=== PATIENT | male | born 1945 | race Caucasian/White ===

== ENCOUNTER 2023-06-29 22:29 | Emergency (ER) | payer MEDICARE, OTHER, SELFPAY ==
[2023-06-29 22:57] VITALS: BP 139/77; PULSE 58; RESP 18; TEMP 36.4; O2SAT 95; BMI 33.9
--- NOTE | 2023-06-29 23:48 | CRLHL7_ITS ---
For Patients: As a result of the Cures Act, medical imaging exams and procedure reports are released immediately into your electronic medical record. You may view this report before your referring provider. If you have questions, please contact your health care provider. INDICATION: Fell skiing, impact right side. COMPARISON: None. TECHNIQUE: Right ribs 2 views. FINDINGS: A BB marker was placed over the right lower chest wall. No displaced rib fracture is identified in this region. The upper ribs are excluded from the field of view. There is a small metallic foreign body projected over the proximal right humeral shaft. IMPRESSION: No displaced rib fracture identified. Dictated by Kala Isabel MD @ 06/30/2023 1:36:39 AM (Electronically Signed)
--- NOTE | 2023-06-29 23:48 | CRLHL7_ITS ---
For Patients: As a result of the Cures Act, medical imaging exams and procedure reports are released immediately into your electronic medical record. You may view this report before your referring provider. If you have questions, please contact your health care provider. INDICATION: Fell skiing, impact right side. TECHNIQUE: Right shoulder 3 views. COMPARISON: None. FINDINGS: No acute fracture or dislocation. Mild degenerative changes of the glenohumeral and acromioclavicular joints. There is a small metallic foreign body projected over the proximal humeral shaft. The visualized right lung is clear. Soft tissues are unremarkable. IMPRESSION: 1. Mild degenerative changes of the shoulder. No fracture identified. 2. Small metallic foreign body projected over the proximal humeral shaft could be postoperative in nature however clinical correlation is recommended. Dictated by Kala Isabel MD @ 06/30/2023 1:30:30 AM (Electronically Signed)
--- NOTE | 2023-06-29 23:48 | CRLHL7_ITS ---
For Patients: As a result of the Cures Act, medical imaging exams and procedure reports are released immediately into your electronic medical record. You may view this report before your referring provider. If you have questions, please contact your health care provider. INDICATION: Fell skiing, impact right side. TECHNIQUE: Pelvis and right hip 3 views. COMPARISON: None. FINDINGS: No acute fracture or dislocation. The hip joint spaces are preserved. Lower lumbar spine hardware. The sacroiliac joints are normal in appearance. Mild degenerative changes of the pubic symphysis. Pelvic phleboliths. Soft tissues are unremarkable. IMPRESSION: No acute findings. Dictated by Kala Isabel MD @ 06/30/2023 1:32:50 AM (Electronically Signed)
--- NOTE | 2023-06-29 23:49 | ED.GENADULT ---
HPI - General Adult General Chief complaint: Fall/Minor Trauma Stated complaint: injured right hip Time Seen by Provider: 06/29/23 23:42 History of Present Illness HPI narrative: This 78-year-old male comes in with an injury that occurred prior to arrival. He was downhill skiing and his skis got stuck causing him to lunge forward down hill. He landed on his right side and complains of pain in his right hip, right ribs, and right shoulder. He did not hit his head or have loss of consciousness. He states that he did get up and ski down the hill but now has worsening pain. He has trouble bearing weight on his right leg. Related Data Home Medications Medication Instructions Recorded Confirmed allopurinol .ROUTE 06/29/23 apixaban 5 mg tablet (Eliquis) 5 mg PO BID 06/29/23 06/29/23 atenolol .ROUTE 06/29/23 atorvastatin 10 mg tablet 10 mg PO DAILY 06/29/23 06/29/23 chlorthalidone .ROUTE 06/29/23 losartan .ROUTE 06/29/23 magnesium glycinate PO 06/29/23 pantoprazole PO 06/29/23 Allergies Allergy/AdvReac Type Severity Reaction Status Date / Time No Known Drug Allergies Allergy Verified 06/29/23 22:47 Review of Systems Status of ROS: Reports: 10 or more systems reviewed and unremarkable except as noted in History and below Narrative: Constitutional: No fevers, no weight gain or loss. Eyes: No discharge. No vision changes. HENT: No congestion, no sore throat, no ear pain. Cardiovascular: No palpitations. Respiratory: No shortness of breath, no wheezes, no cough. Gastrointestinal: No abdominal pain, no vomiting, no diarrhea. Genitourinary: No dysuria, no hematuria. Musculoskeletal: Pain in the right hip, right ribs, and right shoulder. Skin: No rashes, no pruritis. Neurological: No dizziness, weakness, sensory change, speech change. Endo/Heme/Allergies: No bruising or bleeding. No polydipsia. Pysch: no suicidality, no anxiety, no insomnia. All other systems reviewed and are negative. Exam Narrative: Exam Narrative: Constitutional: Well-developed, well-nourished, no acute distress. HEENT: Normocephalic, atraumatic. Neck: Normal range of motion. Nontender. Supple. Heart: Regular. No murmurs. Normal rate. Intact distal pulses. Lungs: Clear to auscultation. No wheezes, rhonchi, or rales. Chest: Mild discomfort in the right lateral ribs. Abdomen: Normal bowel sounds. Nontender. No rebound tenderness. Genitalia: Deferred. Back: No midline tenderness. Normal range of motion. 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 He is unable to raise his right leg off the bed because of pain in his right hip. Right shoulder has diffuse pain with no sign of deformity or decreased range of motion. Skin: Intact. No rash. Warm. No erythema or pallor. Neurologic: No altered sensation. No weakness. Alert and oriented. Psychiatric: No suicidality. No anxiety or depression. No insomnia. Nursing notes and vitals signs are reviewed. Const: Vital Signs, click to edit/add: Vital Signs - 24 hr 06/29/23 22:57 Temperature 97.6 F Pulse Rate [Pulse Oximeter] 58 L Respiratory Rate 18 Blood Pressure [Ri ght Upper Arm] 139/77 Pulse Oximetry 95 Oxygen Delivery Me thod Room Air Course Vital Signs Vital signs: Initial Vital Signs Temperature 97.6 F 06/29/23 22:57 Temperature Source Temporal Artery Scan 06/29/23 22:57 Pulse Rate 58 L 06/29/23 22:57 Pulse Rhythm Regular 06/29/23 22:57 Respiratory Rate 18 06/29/23 22:57 Blood Pressure 139/77 06/29/23 22:57 Blood Pressure Mean 97 06/29/23 22:57 Blood Pressure Position Sitting 06/29/23 22:57 Pulse Oximetry 95 06/29/23 22:57 Oxygen Delivery Method Room Air 06/29/23 22:57 Vital Signs Temperature 97.6 F 06/29/23 22:57 Pulse Rate 58 L 06/29/23 22:57 Respiratory Rate 18 06/29/23 22:57 Blood Pressure 139/77 06/29/23 22:57 Pulse Oximetry 95 06/29/23 22:57 Oxygen Delivery Method Room Air 06/29/23 22:57 Temperature 97.6 F 06/29/23 22:57 Pulse Rate 58 L 06/29/23 22:57 Respiratory Rate 18 06/29/23 22:57 Blood Pressure 139/77 06/29/23 22:57 Pulse Oximetry 95 06/29/23 22:57 Oxygen Delivery Method Room Air 06/29/23 22:57 Medical Decision Making MDM Narrative Medical decision making narrative: This patient comes in with injury primarily to his right hip but also complains of some pain in his right ribs and right shoulder. X-ray imaging of these 3 areas by my review show no sign of osseous injury. The patient has pain when engaging is hip flexor mechanism of the right leg. His pain is more focused at the iliac crest and is typical of a hip pointer. He is okay to be discharged home. He was fitted for crutches and received prescription from [employer] [facility] for [place]. Discharge Plan Discharge Clinical Impression: Contusion of hip, right Patient Disposition: Home, Self-Care Condition: Stable Additional Instructions: Use crutches as needed. Take medications also as needed and directed. Increase activity as tolerated. Follow up with MD or return if worsening. Prescriptions: No Action Eliquis 5 mg tablet 5 mg PO BID pantoprazole [Protonix] PO allopurinol .ROUTE magnesium glycinate PO atenolol .ROUTE atorvastatin 10 mg tablet 10 mg PO DAILY chlorthalidone .ROUTE losartan .ROUTE Follow Up/Referrals: Provider,Not a Local [Primary Care Provider] - Stand Alone Forms: [employer] Info Instructions
== END 2023-06-30 01:25 | disposition home or self-care (01) ==
PROVIDERS: Emergency Provider Emergency Medicine Emergency Medical Services
DX: S70.01XA Contusion of right hip, initial encounter (principal); V00.321A Fall from snow-skis, initial encounter
CPT/HCPCS: 71100; 73030; 73502; 99283; 99284

== ENCOUNTER 2024-08-24 08:54 | Emergency (ER) | payer MEDICARE, OTHER, SELFPAY ==
[2024-08-24 09:36] VITALS: BP 145/78; PULSE 86; RESP 18; TEMP 36.8; O2SAT 96; BMI 31.6
[2024-08-24 09:47] LABS: Appearance Urine Clear (Clear); Bilirubin Urine Negative (Negative); Blood Urine Negative (Negative); Color Urine Yellow (Yellow); Glucose Urine Negative (Negative); Ketones Urine Negative (Negative); Leukocyte Esterase Urine Negative (Negative); Nitrite Urine Negative (Negative); Protein Urine 2+ (Negative); Urobilinogen Urine 0.2 (0.2-1.0)
[2024-08-24 09:56] LABS: Bacteria Urine Few; RBC Urine 0-2 (0-2); Squamous Epithelial Cell Urine Few (None-Few); WBC Urine 0-2 (0-5)
--- NOTE | 2024-08-24 10:26 | ED.GENADULT ---
HPI - General Adult General Chief complaint: Urogenital Problems, Male Stated complaint: Suspected urinary tract infection Time Seen by Provider: 08/24/24 09:47 History of Present Illness HPI narrative: Patient reports about one week of bladder pain and frequency. Denies any sensation of not fully emptying bladder. No previous issues with bladder function. 79-year-old man presenting to the emergency department with some suprapubic area discomfort and some urgency. Actually is not really experiencing frequency. By the time I am seeing him he has resulted a relatively normal urine though with 2+ protein. 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 No constipation or diarrhea. No fever. No hematuria. Some discomfort over the last few weeks. Has had a colonoscopy last few years ago and denies a history diverticulosis. 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 Data Home Medications ?Medication ?Instructions ?Recorded ?Confirmed allopurinol .ROUTE 06/29/23 apixaban 5 mg tablet (Eliquis) 5 mg PO BID 06/29/23 08/24/24 atenolol .ROUTE 06/29/23 atorvastatin 10 mg tablet 10 mg PO DAILY 06/29/23 06/29/23 chlorthalidone .ROUTE 06/29/23 losartan .ROUTE 06/29/23 magnesium glycinate PO 06/29/23 pantoprazole PO 06/29/23 alfuzosin 10 mg tablet,extended mg PO 08/24/24 release 24 hr allopurinol 100 mg tablet mg DAILY 08/24/24 atenolol 50 mg tablet mg DAILY 08/24/24 atorvastatin 40 mg tablet mg DAILY 08/24/24 doxepin 10 mg/mL oral concentrate mg 08/24/24 losartan 100 mg tablet mg DAILY 08/24/24 pantoprazole 20 mg tablet,delayed mg PO DAILY 08/24/24 release semaglutide 0.25 mg or 0.5 mg (2 mg subcut 08/24/24 mg/3 mL) subcutaneous pen injector (Ozempic) Allergies Allergy/AdvReac Type Severity Reaction Status Date / Time No Known Drug Allergies Allergy Verified 06/29/23 22:47 Review of Systems Status of ROS: Reports: 6 or more systems reviewed and unremarkable except as noted in History and below PFSH PFSH Social History Non-prescribed substance use: denies use Exam Narrative: Exam Narrative: Pleasant. NAD. Skin is warm and dry. There is no lower extremity edema. Well-perfused extremities. Breathing easily. Lungs are clear. Heart in regular rate and rhythm without murmur rub or gallop. Abdomen is soft. He does flinch with deep palpation kind of guarded little bit in the right lower abdomen and the suprapubic area less so to the left. No flank pain. IDDIER with prostate check is without tenderness. Const: Vital Signs, click to edit/add: Vital Signs - 24 hr 08/24/24 09:36 Temperature 98.3 F Pulse Rate [Pulse Oximeter] 86 Respiratory Rate 18 Blood Pressure [Ri ght Upper Arm] 145/78 H Pulse Oximetry 96 Oxygen Delivery Me thod Room Air Documenting provider has reviewed patient's vital signs: yes Course Vital Signs Vital signs: Initial Vital Signs Temperature 98.3 F 08/24/24 09:36 Temperature Source Temporal Artery Scan 08/24/24 09:36 Pulse Rate 86 08/24/24 09:36 Respiratory Rate 18 08/24/24 09:36 Blood Pressure 145/78 H 08/24/24 09:36 Blood Pressure Mean 100 08/24/24 09:36 Pulse Oximetry 96 08/24/24 09:36 Oxygen Delivery Method Room Air 08/24/24 09:36 Vital Signs Temperature 98.3 F 08/24/24 09:36 Pulse Rate 86 08/24/24 09:36 Respiratory Rate 18 08/24/24 09:36 Blood Pressure 145/78 H 08/24/24 09:36 Pulse Oximetry 96 08/24/24 09:36 Oxygen Delivery Method Room Air 08/24/24 09:36 Temperature 98.3 F 08/24/24 09:36 Pulse Rate 73 08/24/24 13:05 Respiratory Rate 16 08/24/24 13:05 Blood Pressure 139/86 08/24/24 13:05 Pulse Oximetry 98 08/24/24 13:05 Oxygen Delivery Method Room Air 08/24/24 13:05 Medications Administered Medications: Discontinued Medications Generic Name Dose Route Start Last Admin Trade Name Freq PRN Reason Stop Dose Admin Sodium Chloride 1,000 mls @ 1,000 mls/hr 08/24/24 12:15 08/24/24 12:24 0.9 % Sodium Chloride 1000 Ml IV 08/24/24 13:14 Not Given .Q1H ONE Medical Decision Making MDM Narrative Medical decision making narrative: Differential does include urinary tract infection, prostatitis, diverticulitis, urinary retention although was bladder scanned here as well for about [address] IV. Check renal function perhaps white count will prompt CT imaging looking for diverticulitis in particular. Will need to verify creatinine 1st White count returned the nearly 13,000. Given location of pain I would presume diverticulitis or possible even appendicitis. Has been pending creatinine to receive potentially contrasted imaging. I did discuss this with Dr. Mtz and regardless of creatinine he would prefer no contrast possible. Will proceed with noncontrasted scan. Noncontrast CT scan of abdomen pelvis independently reviewed by me with inflammatory changes in the mid to right lower abdomen/pelvis. I would think this is consistent with diverticulitis. There is however a calcification in the area to the would suggest appendicolith but Dr. Mtz confirms status post appendectomy. Labs with mildly elevated white count at 12.9. Creatinine apparently is in good range at 1.5. Urinalysis with 2 +protein. Otherwise no evidence of infection. Radiology over-read below Indication: RIGHT LOWER ABD PAIN. ?DIVERTICULITIS Technique: CT abdomen/pelvis without IV contrast Comparison: None Findings: Lower thorax: Mild bibasilar atelectasis. Calcified granulomas bilaterally. Abdomen/pelvis: The liver is unremarkable in appearance. Cholelithiasis without CT evidence of acute cholecystitis. No biliary ductal dilatation. Small calcified granulomas in the spleen, likely sequela of remote granulomatous disease. The pancreas and adrenal glands are unremarkable. Absent right kidney. The left kidney is normal in size. No obvious renal masses. Likely few small simple appearing parapelvic renal cysts. No renal calculi or hydroureteronephrosis. The bladder is unremarkable in appearance. Prostatomegaly. There is no evidence of bowel obstruction. Short segment wall thickening of the distal redundant sigmoid colon with a few inflamed diverticula with moderate pericolonic fat stranding. No free air, free fluid, or fluid collections. No abdominopelvic lymphadenopathy. The vasculature is unremarkable. Soft tissue/musculoskeletal: Small fat containing umbilical hernias. No acute fracture or malalignment. Posterior spinal fusion construct spanning L4-L5 with interbody spacer. Impression: Acute, uncomplicated sigmoid diverticulitis. Discussed findings with Dr. Mtz. See patient discharge plan for further discussion Stay well-hydrated. 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 Diluted juices, soup broth, rice, toast, crackers. Ibuprofen or acetaminophen for pain. Return for marked increase in persistent pain, fever, repeated vomiting. [facility] Have a fine time in [place]. Lab Data Lab results reviewed: Yes I reviewed the patient's lab results Labs: Lab Results 08/24/24 08/24/24 Range/Units 09:36 10:50 WBC 12.85 H (4.50-11.00) K/uL RBC 4.82 (4.30-5.90) m/uL Hgb 14.3 (13.5-17.5) gm/dL Hct 42.5 (37.0-53.0) % MCV 88 (80-100) fL MCH 30 (26-34) pg MCHC 34 (32-36) gm/dL RDW Coeff of Ricardo 13.3 (11.5-15.5) % Plt Count 147 (140-440) K/uL Neut % (Auto) 73.5 H (42.0-72.0) % Lymph % (Auto) 14.6 L (20-44) % [place] % (Auto) 9.7 (0.0-11.0) % Eos % (Auto) 1.8 (0.0-7.0) % Baso % (Auto) 0.2 (0.0-3.0) % Neut # (Auto) 9.40 H (1.7-7.0) K/uL Lymph # (Auto) 1.90 (0.90-2.90) K/uL [place] # (Auto) 1.20 H (0.00-0.90) K/UL Eos # (Auto) 0.20 (0.00-0.50) K/uL Baso # (Auto) 0.00 (0.00-0.30) K/uL Abs Immat Gran (auto) 0.00 (0.00-0.30) K/uL Imm/Tot Granulo (auto) 0.2 % Sodium 135 (135-149) mmol/L Potassium 4.4 (3.6-5.1) mmol/L Chloride 103 (96-114) mmol/L Carbon Dioxide 25 (20-32) mmol/L Anion Gap 7 (7-15) mEq/L BUN 20 (7-30) mg/dL Creatinine 1.5 (0.5-1.5) mg/dL Estimated Creat Clear 45.27 Estimated GFR 48 ml/min Glucose 108 (60-115) mg/dL Calcium 9.5 (8.4-10.6) mg/dL C-Reactive Protein 4.2 H (0.5-1.0) mg/dL Urine Color Yellow (Yellow) Urine Appearance Clear (Clear) Urine pH 7.0 (5.0-8.5) Ur Specific [place] 1.020 (1.000-1.030) Urine Protein 2+ A (Negative) Urine Glucose (UA) Negative (Negative) Urine Ketones Negative (Negative) Urine Blood Negative (Negative) Urine Nitrite Negative (Negative) Urine Bilirubin Negative (Negative) Urine Urobilinogen 0.2 (0.2-1.0) Ur Leukocyte Esterase Negative (Negative) Urine RBC 0-2 (0-2) Urine WBC 0-2 (0-5) Ur Squamous Epith Cells Few (None-Few) Urine Bacteria Few A (None) Discharge Plan Discharge Clinical Impression: Diverticulitis Patient Disposition: Home, Self-Care Condition: Stable Additional Instructions: Stay well-hydrated. 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 Diluted juices, soup broth, rice, toast, crackers. Ibuprofen or acetaminophen for pain. Return for marked increase in persistent pain, fever, repeated vomiting. Prescribing ciprofloxacin and metronidazole from [facility]. Have a fine time in [place]. Prescriptions: No Action Eliquis 5 mg tablet 5 mg PO BID pantoprazole [Protonix] PO allopurinol .ROUTE magnesium glycinate PO atenolol .ROUTE atorvastatin 10 mg tablet 10 mg PO DAILY chlorthalidone .ROUTE losartan .ROUTE atorvastatin 40 mg tablet DAILY allopurinol 100 mg tablet DAILY pantoprazole 20 mg tablet,delayed release (DR/EC) PO DAILY doxepin 10 mg/mL concentrate Patient Comments: [NO ORIGINAL SIG] losartan 100 mg tablet DAILY atenolol 50 mg tablet DAILY alfuzosin 10 mg tablet extended release 24 hr PO Patient Comments: [NO ORIGINAL SIG] Ozempic 0.25 mg or 0.5 mg (2 mg/3 mL) pen injector SUBCUT Patient Comments: [NO ORIGINAL SIG] Follow Up/Referrals: Provider,Not a Local [Primary Care Provider] - Stand Alone Forms: [employer] Info Instructions
[2024-08-24 11:16] LABS: Basophils Percent Auto 0.2 % (0.0-3.0); Eosinophils Percent Auto 1.8 % (0.0-7.0); Hematocrit 42.5 % (37.0-53.0); Hemoglobin* 14.3 gm/dL (13.5-17.5); Immature Granulocytes Pct Auto 0.2 %; Lymphocytes Percent Auto 14.6 % (20-44); Mean Corpuscular HGB Conc 34 gm/dL (32-36); Mean Corpuscular Hemoglobin 30 pg (26-34); Mean Corpuscular Volume 88 fL (80-100); Monocytes Percent Auto 9.7 % (0.0-11.0); Neutrophils Percent Auto 73.5 % (42.0-72.0); Platelet Count* 147 K/uL (140-440); RDW Coefficient of Variation % 13.3 % (11.5-15.5); Red Blood Count 4.82 m/uL (4.30-5.90); White Blood Count* 12.85 K/uL (4.50-11.00)
[2024-08-24 11:29] LABS: Slide Review Reflex No
[2024-08-24 11:44] LABS: Chloride* 103 mmol/L (96-114); Potassium* 4.4 mmol/L (3.6-5.1); Sodium* 135 mmol/L (135-149)
[2024-08-24 11:47] LABS: Anion Gap 7 mEq/L (7-15); Blood Urea Nitrogen* 20 mg/dL (7-30); Carbon Dioxide* 25 mmol/L (20-32); Creatinine* 1.5 mg/dL (0.5-1.5); Est. Creatinine Clearance* 45.27; Estimated Glomerular Filt Rate 48 ml/min
[2024-08-24 11:48] LABS: Calcium* 9.5 mg/dL (8.4-10.6); Glucose* 108 mg/dL (60-115)
[2024-08-24 11:50] LABS: C Reactive Protein* 4.2 mg/dL (0.5-1.0)
[2024-08-24 13:05] VITALS: BP 139/86; PULSE 73; RESP 16; O2SAT 98
== END 2024-08-24 13:13 | disposition home or self-care (01) ==
PROVIDERS: Emergency Provider Family Medicine
DX: K57.32 Diverticulitis of large intestine without perforation or abscess without bleeding (principal)
CPT/HCPCS: 36415; 51798; 74176; 80048; 81001; 81003; 82270; 85025; 86140; 87086; 99284